=== PATIENT | female | born 1980 | race Caucasian/White ===

== ENCOUNTER 2016-05-24 17:29 | Inpatient (IN) ==
[2016-05-24] MEDS ORDERED: NS 1,000 ML IV ONE ×3 (17:51→20:15)
[2016-05-24] MEDS ORDERED: OFIRMEV 1000 MG/ISOTONIC SOLN 1,000 MG/100 ML BOTTLE IV ONE (17:52)
[2016-05-24] MEDS ORDERED: OFIRMEV 1000 MG/ISOTONIC SOLN 1,000 MG/100 ML BOTTLE IV SCH (17:52)
[2016-05-24] MEDS ORDERED: NS 1,000 ML ONE (18:01)
[2016-05-24] MEDS ORDERED: ATIVAN IV ONE (18:34)
[2016-05-24 18:48] LABS: MANUAL DIFF NEEDED? NO
[2016-05-24 18:49] LABS: BASO% 0.3 % (0.0-0.8); EOS# 0.14 X1000 (0.0-0.7); EOS% 0.6 % (0.0-10.0); HEMATOCRIT 33.6 % (37.0-47.0); HEMOGLOBIN 10.9 g/dL (12.0-16.0); IMM GRAN# 0.08 X1000 (0.0-0.04); IMM GRAN% 0.3 % (0.0-0.5); LYMPH# 4.58 X1000 (1.2-3.4); LYMPH% 19.5 % (20.5-51.1); MCH 27.8 PG (27-31); MCHC 32.4 g/dL (33-37); MCV 85.7 FL (81-99); MONO# 1.97 X1000 (0.11-0.59); MONO% 8.4 % (1.7-9.3); MPV 10.4 FL (7.4-10.4); NEUT% 70.9 % (42.2-75.2); PLT 438 X1000 (130-400); RBC 3.92 XMIL (4.2-5.4)
[2016-05-24 19:11] LABS: AGAP 14; ALBUMIN 3.6 g/dL (3.5-5.0); ALKALINE PHOSPHATASE 125 U/L (32-104); BUN 7 mg/dL (8-22); CALCIUM 8.4 mg/dL (8.8-10.2); CHLORIDE 97 mmol/L (98-107); COSMO 269; GOT 18 U/L (10-30); GPT 16 U/L (10-36); LIPASE 11 U/L (13-60); POTASSIUM 3.5 mmol/L (3.5-5.1); SODIUM 136 mmol/L (136-145); TCO2 25 mmol/L (25-35); TOTAL BILIRUBIN 0.32 mg/dL (0.20-1.00)
[2016-05-24 19:37] LABS: CK INDEX 1.3 (0.0-2.5); CK-MB 6.42 ng/mL (0.0-5.0)
[2016-05-24 19:49] LABS: INR 1.02; PROTIME 10.7 Seconds (9.2-11.7); PTT 31.4 Seconds (22.0-36.0)
[2016-05-24] MEDS ORDERED: VANCOMYCIN 1 GM/NS 1 GM/250 ML IVPB IV ONE (20:02)
[2016-05-24] MEDS ORDERED: ZOSYN 3.375 GM/NS 3.375 GM/50 ML IVPB IV ONE (20:02)
[2016-05-24 20:20] LABS: ALLEN TEST YES; BE 0.9 mmoll (-3.0-3.0); BLOOD TYPE ARTERIAL; DRAW SITE R RADIAL; PCO2(98.6) 33 mmHg (35-45); PO2(98.6) 87 mmHg (60-100); SAMPLE BLOOD; pH(98.6) 7.47 (7.35-7.45)
[2016-05-24 20:21] LABS: MODALITY ROOM AIR
[2016-05-24 20:23] LABS: URINE CULTURE NEEDED? NO; URINE MICRO REVIEW NEEDED? NO; URINE SOURCE CLEAN CATCH
--- NOTE | 2016-05-24 20:35 | PROVIDER DOCUMENTATION ---
HPI-Fever - General Chief Complaint: Altered Mental Status Stated Complaint: general Time Seen by Provider: 05/24/16 17:47 Source: patient Unable to obtain history due to:: altered Allergies/Adverse Reactions: Patient Allergies Allergy/AdvReac Type Severity Reaction Status Date / Time No Known Allergies Allergy Verified 05/24/16 18:11 Home Medications: Home Medication List Medication Instructions Recorded Confirmed Last Taken Type No Home Medications 03/22/16 05/24/16 Unknown History - History of Present Illness-Fever Nature of Presenting Problem: Pt presents to the ED today screaming with left upper flank pain. The pt appears to be under the influence of something and I see in her past records that she does have a hx of drug problems and psychiatric issues. The pt really isn't making any sense and is rolling around the bed screaming. An adequate hx cannot be obtained. Fever Severity/Quality: reports: low grade Onset/Duration: reports: unsure Timing: reports: still present Severity: reports: severe Cognitive Baseline: alert but disoriented - Glascow Coma Score Best Eye Response ([place]): (4) open spontaneously Best Verbal Response ([place]): (4) confused conversation Best Motor Response ([place]): (6) obeys commands Doretha Total: 14 Review of Systems - Adult - REVIEW OF SYSTEMS - ADULT ROS:: limited per condition Constitutional: reports: no symptoms reported Eyes: reports: no symptoms reported Ears, Nose, Mouth & Throat: reports: no symptoms reported Cardiovascular: reports: no symptoms reported Respiratory: reports: no symptoms reported Gastrointestinal: reports: no symptoms reported Genitourinary: reports: flank pain Musculoskeletal: reports: no symptoms reported Integumentary: reports: no symptoms reported Neurological: reports: no symptoms reported Psychiatric: reports: no symptoms reported Endocrine: reports: no symptoms reported Hematologic/Lymphatic: reports: no symptoms reported Allergic/Immunologic: reports: no symptoms reported All Other Systems: Reviewed and Negative Past History - Adult - PAST MEDICAL HISTORY-ADULT Review of Records: reports: Old Records Reviewed, Nursing Assessment Review, Medications Reviewed, Social history reviewed & non-contributory. Major Childhood Illnesses: reports: history unknown Cardiovascular: reports: HTN Respiratory: reports: denies history Gastrointestinal: reports: denies history Obstetrical/Gynecological: reports: endometriosis Genitourinary: reports: denies history Musculoskeletal: reports: denies history Neurological: reports: denies history Psychiatric: reports: anxiety, suicide attempt, other (opiate dependence) Endocrine/Immune: reports: denies history Other Conditions: reports: denies history - PRIOR SURGERIES/PROCEDURES Surgical/Procedure History: reports: tonsillectomy, other (Exploratory lap, second toe left foot amputation) - PRIOR HOSPITALIZATIONS Prior Hospitalizations: reports: none - IMMUNIZATION STATUS Childhood Immunizations: See Nurse Assessment Flu Vaccine: See Nurse Assessment - FAMILY HISTORY Family History: reviewed, not pertinent - SOCIAL HISTORY Substance Use: marijuana, opiates Physical Exam-General - PHYSICAL EXAM-ADULT Exam Limited by: Pt is altered; she is writhing in the bed and will not answer questions - CONSTITUTIONAL General Appearance: moderate distress, obese, anxious - EYES Eyes: PERRL/EOMI - HEAD, EARS, NOSE, MOUTH & THROAT HENMT: normocephalic/atraumatic - NECK Neck: non-tender, full range of motion - RESPIRATORY Respiratory: normal breath sounds, no respiratory distress, no accessory muscle use - CARDIOVASCULAR Cardiovascular: normal peripheral pulses, tachycardia - GASTROINTESTINAL (ABDOMEN) Abdominal Exam: normal bowel sounds, soft, tenderness (L upper flank) - MUSCULOSKELETAL Back Exam: CVA tenderness (left flank) Extremity: normal range of motion - SKIN Integumentary: normal color, normal turgor, warm/dry - NEUROLOGIC Neurologic: grossly normal. negative: facial droop, focal weakness, motor weakness, sensory deficit - PSYCHIATRIC Psych/Mental Status: disoriented x 3, anxious, disheveled, tearful Progress - PLAN OF CARE/RESULTS Progress/Plan/Lab Results: Vital Signs - 8 hr 05/24/16 17:37 Temperature 100.2 F H Pulse Rate 123 H Respiratory Rate 20 Blood Pressure 178/105 O2 Sat by Pulse Oximetry 98 Laboratory Results - last 24 hr 05/24/16 05/24/16 05/24/16 18:25 18:25 18:25 WBC 23.54 H RBC 3.92 L Hgb 10.9 L Hct 33.6 L MCV 85.7 MCH 27.8 MCHC 32.4 L RDW Std Deviation 14.3 Plt Count 438 H MPV 10.4 Immature Gran % (Auto) 0.3 Neut % (Auto) 70.9 Lymph % (Auto) 19.5 L [place] % (Auto) 8.4 Eos % (Auto) 0.6 Baso % (Auto) 0.3 Immature Gran # (Auto) 0.08 H Neut # (Auto) 16.71 H Lymph # (Auto) 4.58 H [place] # (Auto) 1.97 H Eos # (Auto) 0.14 Baso # (Auto) 0.06 PT INR PTT (Actin FS) Specimen Type Sample Site pH pCO2 pO2 HCO3 Base Excess [place] Test A-a O2 Difference Lactate Blood Gas Modality FiO2 % Sodium 136 Potassium 3.5 Chloride 97 L Carbon Dioxide 25 Anion Gap 14 BUN 7 L Creatinine 0.8 Estimated GFR/1.73 m2 > 60 BUN/Creatinine Ratio 9 Glucose 87 Calculated Osmolality 269 Calcium 8.4 L Magnesium Total Bilirubin 0.32 AST 18 ALT 16 Alkaline Phosphatase 125 H Creatine Kinase 477 H Creatine Kinase Index 1.3 CK-MB (CK-2) 6.42 H Troponin T [id number] Pept Total Protein 7.0 Albumin 3.6 Globulin 3.4 Albumin/Globulin Ratio 1.1 Lipase 11 L Plasma Lactate Urine Source Urine Color Urine Turbidity Urine pH Ur Specific Elaine Urine Protein Ur Glucose (Stick) Ur Ketones (Stick) Urine Blood Urine Nitrite Urine Bilirubin Urobilinogen Dipstick Urine Leukocytes Urine WBC (Auto) Urine RBC (Auto) U Epithel Cells (Auto) Urine Bacteria (Auto) Urine Test Urine Opiates Screen Ur Oxycodone Screen Ur Methadone, Qual Ur Barbiturates Screen Ur Phencyclidine Scrn Ur Amphetamines Screen U Benzodiazepines Scrn Urine Cocaine Screen U Cannabinoids Screen 05/24/16 05/24/16 05/24/16 18:25 18:25 18:25 WBC RBC Hgb Hct MCV MCH MCHC RDW Std Deviation Plt Count MPV Immature Gran % (Auto) Neut % (Auto) Lymph % (Auto) [place] % (Auto) Eos % (Auto) Baso % (Auto) Immature Gran # (Auto) Neut # (Auto) Lymph # (Auto) [place] # (Auto) Eos # (Auto) Baso # (Auto) PT INR PTT (Actin FS) Specimen Type Sample Site pH pCO2 pO2 HCO3 Base Excess [place] Test A-a O2 Difference Lactate Blood Gas Modality FiO2 % Sodium Potassium Chloride Carbon Dioxide Anion Gap BUN Creatinine Estimated GFR/1.73 m2 BUN/Creatinine Ratio Glucose Calculated Osmolality Calcium Magnesium 1.9 Total Bilirubin AST ALT Alkaline Phosphatase Creatine Kinase Creatine Kinase Index CK-MB (CK-2) Troponin T < 0.010 [id number]-Nolppflrjir Pept 825 H Total Protein Albumin Globulin Albumin/Globulin Ratio Lipase Plasma Lactate Urine Source Urine Color Urine Turbidity Urine pH Ur Specific Elaine Urine Protein Ur Glucose (Stick) Ur Ketones (Stick) Urine Blood Urine Nitrite Urine Bilirubin Urobilinogen Dipstick Urine Leukocytes Urine WBC (Auto) Urine RBC (Auto) U Epithel Cells (Auto) Urine Bacteria (Auto) Urine Test Urine Opiates Screen Ur Oxycodone Screen Ur Methadone, Qual Ur Barbiturates Screen Ur Phencyclidine Scrn Ur Amphetamines Screen U Benzodiazepines Scrn Urine Cocaine Screen U Cannabinoids Screen 05/24/16 05/24/16 05/24/16 18:25 19:40 20:10 WBC RBC Hgb Hct MCV MCH MCHC RDW Std Deviation Plt Count MPV Immature Gran % (Auto) Neut % (Auto) Lymph % (Auto) [place] % (Auto) Eos % (Auto) Baso % (Auto) Immature Gran # (Auto) Neut # (Auto) Lymph # (Auto) [place] # (Auto) Eos # (Auto) Baso # (Auto) PT 10.7 INR 1.02 PTT (Actin FS) 31.4 Specimen Type ARTERIAL Sample Site R RADIAL pH 7.47 H pCO2 33 L pO2 87 HCO3 25.6 Base Excess 0.9 [place] Test YES A-a O2 Difference 21.0 Lactate 0.70 Blood Gas Modality ROOM AIR FiO2 % 21.0 Sodium Potassium Chloride Carbon Dioxide Anion Gap BUN Creatinine Estimated GFR/1.73 m2 BUN/Creatinine Ratio Glucose Calculated Osmolality Calcium Magnesium Total Bilirubin AST ALT Alkaline Phosphatase Creatine Kinase Creatine Kinase Index CK-MB (CK-2) Troponin T [id number]-Ntj[place]ytuk Pept Total Protein Albumin Globulin Albumin/Globulin Ratio Lipase Plasma Lactate 0.6 Urine Source Urine Color Urine Turbidity Urine pH Ur Specific Elaine Urine Protein Ur Glucose (Stick) Ur Ketones (Stick) Urine Blood Urine Nitrite Urine Bilirubin Urobilinogen Dipstick Urine Leukocytes Urine WBC (Auto) Urine RBC (Auto) U Epithel Cells (Auto) Urine Bacteria (Auto) Urine Test Urine Opiates Screen Ur Oxycodone Screen Ur Methadone, Qual Ur Barbiturates Screen Ur Phencyclidine Scrn Ur Amphetamines Screen U Benzodiazepines Scrn Urine Cocaine Screen U Cannabinoids Screen 05/24/16 05/24/16 05/24/16 20:19 20:19 20:19 WBC RBC Hgb Hct MCV MCH MCHC RDW Std Deviation Plt Count MPV Immature Gran % (Auto) Neut % (Auto) Lymph % (Auto) [place] % (Auto) Eos % (Auto) Baso % (Auto) Immature Gran # (Auto) Neut # (Auto) Lymph # (Auto) [place] # (Auto) Eos # (Auto) Baso # (Auto) PT INR PTT (Actin FS) Specimen Type Sample Site pH pCO2 pO2 HCO3 Base Excess [place] Test A-a O2 Difference Lactate Blood Gas Modality FiO2 % Sodium Potassium Chloride Carbon Dioxide Anion Gap BUN Creatinine Estimated GFR/1.73 m2 BUN/Creatinine Ratio Glucose Calculated Osmolality Calcium Magnesium Total Bilirubin AST ALT Alkaline Phosphatase Creatine Kinase Creatine Kinase Index CK-MB (CK-2) Troponin T [id number]-Mrvpnvjcspp Pept Total Protein Albumin Globulin Albumin/Globulin Ratio Lipase Plasma Lactate Urine Source CLEAN CATCH Urine Color YELLOW Urine Turbidity CLEAR Urine pH 6.0 Ur Specific Elaine 1.011 Urine Protein 70 A Ur Glucose (Stick) NEGATIVE Ur Ketones (Stick) NEGATIVE Urine Blood SMALL A Urine Nitrite NEGATIVE Urine Bilirubin NEGATIVE Urobilinogen Dipstick NORMAL Urine Leukocytes NEGATIVE Urine WBC (Auto) <10 Urine RBC (Auto) <10 U Epithel Cells (Auto) <10 Urine Bacteria (Auto) NEGATIVE Urine Test NEGATIVE Urine Opiates Screen PRESUMPTIVE POSITIVE A Ur Oxycodone Screen NONE DETECTED Ur Methadone, Qual NONE DETECTED Ur Barbiturates Screen NONE DETECTED Ur Phencyclidine Scrn NONE DETECTED Ur Amphetamines Screen PRESUMPTIVE POSITIVE A U Benzodiazepines Scrn PRESUMPTIVE POSITIVE A Urine Cocaine Screen NONE DETECTED U Cannabinoids Screen NONE DETECTED Orders Category Date Time Status Saline Loc NOW Care 05/24/16 17:51 Active HEAD W/O CONTRAST [CT] Stat Exams 05/24/16 19:15 Ordered THORAX/ABDOMEN/PELVIS [CT] Stat Exams 05/24/16 19:18 Ordered ABG [RESP] Routine Lab 05/24/16 20:10 Completed ALCOHOL BLOOD Stat Lab 05/24/16 21:13 Ordered AMMONIA [CHEM] Stat Lab 05/24/16 20:03 Ordered BLOOD CULTURE [BLDCUL] Stat Lab 05/24/16 19:40 Results CBC WITH ELECTRONIC DIFF [HEME] Stat Lab 05/24/16 18:25 Completed CK PROFILE [SP CHEM] Stat Lab 05/24/16 18:25 Completed COMPREHENSIVE METABOLIC PANEL [CHEM] Stat Lab 05/24/16 18:25 Completed LACTATE, PLASMA [CHEM] Stat Lab 05/24/16 19:40 Completed LIPASE [CHEM] Stat Lab 05/24/16 18:25 Completed MAGNESIUM [CHEM] Stat Lab 05/24/16 18:25 Completed TEST-URINE [PREG] Stat Lab 05/24/16 20:19 Completed PRO B-NATRIURETIC PEPTIDE Stat Lab 05/24/16 18:25 Completed PROTIME WITH INR [COAG] Stat Lab 05/24/16 18:25 Completed PTT [COAG] Stat Lab 05/24/16 18:25 Completed TROPONIN T Stat Lab 05/24/16 18:25 Completed UA NIMS W/REFLEX CULT [URINALYSIS] Stat Lab 05/24/16 20:19 Completed URINE DRUG SCREEN Stat Lab 05/24/16 20:19 Completed 0.9% Sodium Chloride Inj [Ns] 1,000 ml Med 05/24/16 18:01 Discontinued .ROUTE As Directed 0.9% Sodium Chloride Inj [Ns] 1,000 ml Med 05/24/16 17:51 Discontinued IV 999 mls/hr 0.9% Sodium Chloride Inj [Ns] 1,000 ml Med 05/24/16 20:15 Discontinued IV 999 mls/hr Acetaminophen [Ofirmev 1000 mg/Isotonic Soln] Med 05/24/16 17:52 Discontinued 1,000 mg in 100 ml IV NOW Acetaminophen [Ofirmev 1000 mg/Isotonic Soln] Med 05/24/16 17:52 Discontinued 1,000 mg in 100 ml IV Q6H Lorazepam [Ativan] Med 05/24/16 18:34 Discontinued 1 mg IV NOW ONE Piperacil/Tazobact 3.375 gm/Ns [Zosyn 3.375 gm/Ns] Med 05/24/16 20:02 Discontinued 3.375 gm in 50 ml IV NOW Vancomycin 1 gm/Ns Med 05/24/16 20:02 Discontinued 1 gm in 250 ml IV NOW Water, Sterile Inj [Sterile Water Inj] Med 05/24/16 21:10 Discontinued 10 ml .ROUTE .STK-MED ONE Ziprasidone [Geodon] Med 05/24/16 21:09 Discontinued 20 mg .ROUTE .STK-MED ONE EKG [EKG] Stat Ther 05/24/16 19:15 Ordered Pt would not be still for CT. She is still writhing and screaming in the bed. I believe that spice may be involved. Her stopped by the ER briefly but after being questioned about her potential drug use he left the ED. Will admit to hospitalist service for potential OD and AMS. Result Diagrams: 05/24/16 18:25 05/24/16 18:25 - REASSESSMENT Reassessment #1 Time Reassessed: 20:36 Status: unchanged Reassessment Comment: Pt is still very altered. - CONSULTS/PCP/HOSPITALIST Notification #1 *Consult/PCP/Hospitalist*: Dr. Rios Time Discussed: 21:15 Consult Disposition: Admit Departure - Departure Time of Disposition Decision: 21:15 DIAGNOSIS: Drug abuse Amphetamine adverse reaction Qualifiers: Encounter type: initial encounter Qualified Code(s): T43.625A - Adverse effect of amphetamines, initial encounter Altered mental status, unspecified Qualifiers: Altered mental status type: unspecified Qualified Code(s): R41.82 - Altered mental status, unspecified Leukocytosis Qualifiers: Leukocytosis type: unspecified Qualified Code(s): D72.829 - Elevated white blood cell count, unspecified Disposition: ADMITTED INPATIENT 09 Certified Medical Emergency: Emergent Condition: Stable Referrals and Follow-Ups: None,PCP [Primary Care Provider] - Attestation - Physician/ JACK Attestation Patient care was provided by Advanced Practice Provider:: Yes Advanced Practice Provider:: Damien Licona Advanced Practice Provider documentation review:: The Mid-level provider documentation, treatment plan and medical decision making was reviewed by the physician who agrees with all treatment and medical decision making by the MLP.
[2016-05-24 20:39] LABS: BILIRUBIN URINE NEGATIVE (NEGATIVE); BLOOD URINE SMALL (NEGATIVE); COLOR YELLOW; GLUCOSE URINE NEGATIVE (NEGATIVE); LEUKOCYTES URINE NEGATIVE (NEGATIVE); NITRITE URINE NEGATIVE (NEGATIVE); PROTEIN URINE 70 mg/dL (NEGATIVE); SP GRAVITY URINE 1.011; TURBIDITY URINE CLEAR (CLEAR); UROBILINOGEN URINE NORMAL (NORMAL)
[2016-05-24 20:40] LABS: UR EPITHELIAL CELLS <10 /HPF (<10); URINE BACTERIA NEGATIVE /HPF; URINE RBC <10 /HPF (<10); URINE WBC <10 /HPF (<10)
[2016-05-24 20:51] LABS: UR AMPHETAMINES QUAL PRESUMPTIVE POSITIVE (NONE DETECT); UR BARBITUATES QUAL NONE DETECTED (NONE DETECT); UR BENZODIAZEPIN QUAL PRESUMPTIVE POSITIVE (NONE DETECT); UR CANNABINOIDS QUAL NONE DETECTED (NONE DETECT); UR COCAINE QUAL NONE DETECTED (NONE DETECT); UR METHADONE QUAL NONE DETECTED (NONE DETECT); UR OPIATES QUAL PRESUMPTIVE POSITIVE (NONE DETECT); UR OXYCODONE QUAL NONE DETECTED (NONE DETECT); UR PCP QUAL NONE DETECTED (NONE DETECT)
[2016-05-24] MEDS ORDERED: GEODON ONE (21:09)
[2016-05-24] MEDS ORDERED: STERILE WATER INJ. ONE (21:10)
[2016-05-24] MEDS ORDERED: GEODON IM ONE (21:32)
[2016-05-24] MEDS ORDERED: STERILE WATER INJ. INJ ONE (21:32)
[2016-05-25] MEDS ORDERED: STERILE WATER INJ. INJ PRN ×2 (01:58→10:28)
[2016-05-25] MEDS ORDERED: TYLENOL PR PRN (01:58)
[2016-05-25] MEDS ORDERED: VANCOMYCIN IV PER PHARMACY MISC SCH (01:58)
[2016-05-25] MEDS ORDERED: GEODON IM PRN ×2 (01:58→10:28)
[2016-05-25] MEDS ORDERED: ZOFRAN IV PRN (01:58)
[2016-05-25] MEDS ORDERED: LOVENOX SUBQ SCH (01:58)
[2016-05-25] MEDS ORDERED: VANCOMYCIN 500 MG/NS 500 MG/100 ML IVPB IV ONE ×2 (02:00→03:00)
[2016-05-25] MEDS: NS 1,000 ML IV SCH ×2 (02:28→13:53)
[2016-05-25 02:36] LABS: URINE CULTURE NEEDED? NO; URINE SOURCE CATH
[2016-05-25 02:43] LABS: BILIRUBIN URINE NEGATIVE (NEGATIVE); BLOOD URINE LARGE (NEGATIVE); CLARITY CLEAR (CLEAR); COLOR YELLOW; GLUCOSE URINE NEGATIVE (NEGATIVE); LEUKOCYTES URINE NEGATIVE (NEGATIVE); NITRITE URINE NEGATIVE (NEGATIVE); PROTEIN URINE 30 mg/dL (NEGATIVE); UROBILINOGEN URINE 0.2 EU/dL (0.2-1.0)
[2016-05-25 02:47] LABS: URINE EPITHELIAL CELLS <10 /HPF (<10); URINE RBC 20-40 /HPF (<10)
[2016-05-25] MEDS ORDERED: ROCEPHIN 1 GM/NS 1 GM/50 ML IVPB IV SCH (04:00)
[2016-05-25 04:18] LABS: ALLEN TEST YES; BE -0.4 mmoll (-3.0-3.0); BLOOD TYPE ARTERIAL; DRAW SITE R RADIAL; O2(CT) 16.8 mL/dL (15.0-23.0); PCO2(98.6) 38 mmHg (35-45); PO2(98.6) 75 mmHg (60-100); SAMPLE BLOOD; SAO2 98.8 % (95.0-100.0); THB 12.6 g/dL (11.5-17.4); pH(98.6) 7.41 (7.35-7.45)
[2016-05-25 04:19] LABS: MODALITY VENTIMASK
[2016-05-25 04:24] LABS: MANUAL DIFF NEEDED? NO
[2016-05-25 04:28] LABS: BASO% 0.2 % (0.0-0.8); EOS# 0.18 X1000 (0.0-0.7); EOS% 0.9 % (0.0-10.0); HEMATOCRIT 34.2 % (37.0-47.0); IMM GRAN# 0.09 X1000 (0.0-0.04); IMM GRAN% 0.5 % (0.0-0.5); LYMPH# 2.76 X1000 (1.2-3.4); MCH 28.5 PG (27-31); MCHC 32.2 g/dL (33-37); MCV 88.6 FL (81-99); MONO# 1.52 X1000 (0.11-0.59); MONO% 7.7 % (1.7-9.3); MPV 10.3 FL (7.4-10.4); NEUT% 76.7 % (42.2-75.2); PLT 401 X1000 (130-400); RBC 3.86 XMIL (4.2-5.4)
[2016-05-25 04:55] LABS: AGAP 14; BUN 5 mg/dL (8-22); CALCIUM 7.6 mg/dL (8.8-10.2); CHLORIDE 105 mmol/L (98-107); COSMO 277; POTASSIUM 3.6 mmol/L (3.5-5.1); SODIUM 140 mmol/L (136-145); TCO2 21 mmol/L (25-35)
[2016-05-25 05:11] LABS: CK PROFILE 238 U/L (24-173)
[2016-05-25 06:13] LABS: CK INDEX 1.6 (0.0-2.5); CK-MB 3.89 ng/mL (0.0-5.0)
[2016-05-25] MEDS: MAXIPIME 2 GM/NS 2 GM/100 ML IVPB IV SCH ×2 (07:33→21:42)
--- NOTE | 2016-05-25 07:45 | Diag Imaging Result Document ---
PROCEDURE NAME: HEAD W/O CONTRAST - 05/24/2016 CT BRAIN WITHOUT CONTRAST: FINDINGS: No parenchymal hemorrhage. No epidural or subdural hematoma. No subarachnoid hemorrhage. No skull fracture. No mass identified on this noncontrasted exam. No hydrocephalus. No sinus opacification. IMPRESSION: No hemorrhage. Negative brain CT without contrast. A preliminary report was given at 10:28 p.m.
--- NOTE | 2016-05-25 08:14 | HISTORY AND PHYSICAL ---
CHIEF COMPLAINT: Altered mental status. HISTORY OF PRESENT ILLNESS: This is a 36-year-old female who presents to the ED screaming of left upper flank pain. Patient appeared to be under the influence of some sort of drug and reportedly had a history of drug problems and psychiatric issues. She was aggressive in the emergency room and a history could not be obtained. She subsequently had to be sedated. She has a history of anxiety, suicide attempt, and opiate dependence, as well as hypertension. There was originally apparently a boyfriend at the bedside but he left immediately when asked about her drug use. Toxicology screen was obtained which showed positive for opiates, amphetamines, benzodiazepines. It is believed that she could have a history of IV drug use. She has an elevated white blood cell count of 23.54 which is chronically elevated. She does not appear to have been worked up at any point for endocarditis. She will be admitted to the ICU for overdose of an unknown substance and further evaluation and treatment. PAST MEDICAL HISTORY: Anxiety, depression, suicide attempt, panic attacks, drug use and abuse, hypertension, tobacco abuse. PAST SURGICAL HISTORY: Tonsillectomy, exploratory laparotomy, second toe left foot amputation. SOCIAL HISTORY: Lives at home. Unemployed, on disability. Reportedly smokes around a pack of cigarettes per day, has since age 11. Smoking cessation was not gone over with the patient as she is obtunded secondary to sedation. She apparently does have a history of substance abuse and is currently positive for illicit substances on her toxicology screen. FAMILY HISTORY: Family history could not be reviewed with the patient. No family history was charted in previous dictations that I could find. ALLERGIES: No known drug allergies per previous documentation. HOME MEDICATIONS: Unobtainable related to patient's medical problems. REVIEW OF SYSTEMS: Review of systems unobtainable related to altered mentation and subsequent sedation for aggressive behavior in the emergency room. PHYSICAL EXAMINATION: VITAL SIGNS: Temperature 100.5 degrees on arrival, pulse 103, respirations 22, blood pressure 132/86, oxygen saturation 95% on room air. GENERAL: Obtunded 36-year-old female who does not reflex to painful stimulus. Snoring loudly. HEENT: Head is atraumatic, normocephalic. Pupils equal, round, reactive to light. Extraocular eye movement could not be tested. Oral mucosa is moist. NECK: Supple. No JVD. CARDIOVASCULAR: S1, S2 appreciated. Sinus tachycardia on monitor. Regular rhythm. No murmurs, gallops, rubs. LUNGS: Clear to auscultation bilaterally. No rhonchi, wheezes, or rales. ABDOMEN: Soft, nondistended, nontender. Bowel sounds present in all 4 quadrants, normoactive. No pulsatile mass. No organomegaly. EXTREMITIES: No clubbing, cyanosis, or edema. NEUROLOGICAL: Patient is obtunded, disoriented x3. On arrival was agitated and subsequently sedated. Does not reflex at this time to painful stimulus. Is sleeping soundly. SKIN: Warm, dry, intact. No acute lesions or rash. DIAGNOSTIC DATA: CT of the head was ordered. There was a note in the ER documentation that the patient would not be still for CT scanning and will try again later when appropriate. LABORATORY DATA: WBC 23.54, hemoglobin 10.9, hematocrit 33.6, platelet count 438,000. Coags within normal limits. ABG, pH 7.47, pCO2 33, PO2 87, bicarb 25.6; this was on room air. Sodium 136, potassium 3.5, chloride 97, carbon dioxide 25, BUN 7, creatinine 0.8, glucose 87, alkaline phosphatase 125. CK 477, CK-MB 6.42. Troponin less than 0.010. Urine unremarkable. Toxicology screen positive for opiates, amphetamines, and benzodiazepines. ASSESSMENT AND PLAN: 1. Drug abuse with possible overdose of unknown substance. Patient's toxicology screen was positive for opiates, amphetamines, and benzodiazepines. 2. Leukocytosis of unknown etiology. 3. Possible endocarditis. Patient has apparently used IV drugs. She does not have a noted murmur. However, she was febrile on presentation. Will order echocardiogram in the a.m. Consult Dr. Marino Mayen. Give vancomycin and Rocephin. Blood cultures x2. Recheck laboratory data in the a.m. 4. Previous drug abuse history. 5. Noted hypertension. However, the patient's medications are not available. She is normotensive at this time. However, she is sedated. Will re-evaluate and treat as needed. 6. Apparent rhabdomyolysis. We will give IV fluids. Recheck CK profile and troponin in the a.m. The patient had no complaint of chest pain prior to having to be sedated. Further recommendations per patient clinical course. Dictated by ANDERSON Breaux for Angel Rios MD cc: ANDERSON Breaux MD
--- NOTE | 2016-05-25 09:28 | Diag Imaging Result Document ---
PROCEDURE NAME: THORAX/ABDOMEN/PELVIS - 05/24/2016 CT THORAX WITH CONTRAST: Exam performed with intravenous contrast. A dose-reduction protocol was used. COMPARISON: No comparison exam. FINDINGS: There is mild cardiomegaly. There are hazy bilateral pulmonary opacities. There is mild dependent atelectasis. There is no dense consolidation, pleural effusion, or pneumothorax identified. There are some artifacts from motion. The visualized bony structures appear grossly intact. There are nonspecific small mediastinal lymph nodes. IMPRESSION: Mild cardiomegaly. Nonspecific hazy bilateral pulmonary opacities. The possibility of mild pulmonary edema or pneumonitis cannot be excluded. There is no discrete focal pneumonia identified. CT ABDOMEN AND PELVIS WITH IV CONTRAST ONLY: Exam performed with intravenous contrast only per request of the referring provider. A dose-reduction protocol was used. COMPARISON: 02/24/2012. FINDINGS: There is possibly mild fatty infiltration of the liver. There is no focal liver lesion identified. There are no substantial abnormalities of the spleen, adrenal glands, or pancreas identified. There are no calcified gallstones or pericholecystic inflammation identified. There is mild hydronephrosis on the right. There is no obstructing renal stone identified. There is slight fullness of the left upper collecting system. There is some cortical thinning/scarring on the left which is stable. There is no renal mass identified. The urinary bladder is substantially distended. The urinary bladder dyson are not obviously thickened. There are nonspecific small retroperitoneal lymph nodes. There are no substantially enlarged lymph nodes identified. There is no evidence of bowel obstruction. The appendix shows no obvious inflammation. There is no substantial bowel wall thickening identified. There is no abscess identified. There is no free air or substantial free fluid seen. Images of the pelvis, otherwise, show no abnormal mass or fluid collection. IMPRESSION: 1. Mild right hydronephrosis. No obstructing renal stone identified. Substantially distended urinary bladder. 2. No bowel obstruction. Unremarkable appendix. No abscess. No free air. 3. Possible mild fatty infiltration of the liver. Nonspecific small retroperitoneal lymph nodes. The on-call radiologist provided preliminary results at 10:36 p.m. on 05/24/2016.
--- NOTE | 2016-05-25 09:53 | CONSULTATION ---
DATE OF CONSULTATION: 05/25/2016 HISTORY: The patient was unable to provide a history. No family member is present and there is nothing in the computer that would indicate exactly what the patient's history was at this time. CONCLUSION: The patient has a history of drug addiction. She was admitted to the hospital with an altered mental status. She does have a leukocytosis so I think infection is a diagnostic possibility. Her drug screen was positive for opiates, amphetamines, and benzodiazepines so she appears to be an active addict. RECOMMENDATION: I agree with the decision to treat the patient with vancomycin. I have switched the patient from Rocephin to cefepime. The antibiotics are pending culture results from the blood, and also CT scan and echocardiogram results. The patient's urinalysis showed no white cells or bacteria and thus I think urinary tract infection is very unlikely. I have ordered an antibody to HIV and also a hepatitis profile in view of her history of being a drug addict. DISCUSSION: As mentioned above, I do not have any real history on this patient, just the results of her laboratory tests that are back. The radiographic studies including CT scans of the head, thorax, the abdomen, and pelvis are pending. The patient's CBC shows a white count that was 25,000 and this morning it is down to 19,670. Hemoglobin is 11, platelet count is 401,000. Creatinine is 0.6. GFR is greater than 60. Liver function studies are normal. As mentioned above, the blood cultures are pending. Patient's arterial blood gases showed a pH of 7.41, a PO2 of 75, a pCO2 of 38. Urinalysis showed no white cells or bacteria. Drug screen was positive for opiates, amphetamines, and benzodiazepines. CT scans of the head, chest, abdomen, and pelvis are pending. PHYSICAL EXAMINATION: Vital Signs: Patient's temperature is 99.3 degrees, the pulse is 106, respirations 16, blood pressure is 152/101. Patient's weight is listed as 219 pounds. Generally: This is an obese, young female. She is not intubated. She is not sedated but she is in restraints. Ears, Nose, and Throat: No drainage noted from the nose or ears. Patient did not respond to verbal stimuli. Her mouth was not opened and she did not open it to my request. Neck: No meningismus. Thorax: No increased AP diameter. Lungs: Clear to auscultation. Cardiovascular: Heart rate is regular. I did not hear a murmur. Abdomen: Soft and nontender. Neurologic: Patient now is very lethargic. She barely moved when I talked to her. There was no tremor. She did not talk and she did not follow my requests to move her extremities. Integument: Patient had tattoos. I did not see any needle tracks on her. Neurologic: As mentioned above, the patient is very lethargic now. She did not respond to verbal stimuli. There was no tremor. Thank you for the consult. cc: Marino Mayen MD
--- NOTE | 2016-05-25 11:17 | PROGRESS NOTE ---
DATE: 05/25/2016 SUBJECTIVE: The patient has no focal complaints. OBJECTIVE: Vital signs: Blood pressure 146/86, respiratory rate 18, heart rate 101, temp 98.6 degrees, 94 on 24%. Cardiovascular: Regular rate and rhythm. No displaced PMI. GI: Soft, nontender, nondistended. Bowel sounds are positive. Extremities: No clubbing or cyanosis. Neurologic: She is still very lethargic but she opens her eyes. Moves around a bit. She does answer questions. She does not know what happened to her yesterday, or at least is not willing to describe what happened. She denies drug overdose. She also denies suicidality or intentional drug overdose. Is still somewhat disoriented but is no longer combative. PROBLEM LIST: 1. Acute encephalopathy, presumably polysubstance overdose. Her urine drug screen was positive for methamphetamines, benzodiazepines, and opiates. She is not reportedly on any medications. 2. We will continue to monitor. Clinically she has stabilized. 3. Leukocytosis without clear source of infection. She is on vancomycin and cefepime. We are ruling out endocarditis. Her transthoracic echocardiogram has been completed but has not been reported. We will continue to follow her. Multiple scans are unremarkable. I am going to repeat her chest x-ray today just because she is at risk for aspiration. 4. Drug abuse. We will discuss this when she is a little bit more aware of her findings. DISPOSITION: The patient appears to be stable. I think she is okay to go to a step-down unit at this point and we will follow clinically. Discharge when mental status is improved and we have ruled out infection. cc: Justino Ortiz MD
--- NOTE | 2016-05-25 11:23 | Diag Imaging Result Document ---
PROCEDURE NAME: CHEST-PORTABLE - 05/25/2016 PORTABLE CHEST: Compared with 05/12/2015. FINDINGS: Allowing for the AP projection, there is borderline cardiomegaly. There is mild elevation of right hemidiaphragm. The lungs appear essentially clear. There is no pleural effusion or pneumothorax identified. IMPRESSION: Borderline cardiomegaly. Mild elevation of right hemidiaphragm. No other evidence of acute disease.
[2016-05-25] MEDS: VANCOMYCIN 2,000 MG in NS 500 ML IV SCH (14:51)
[2016-05-25] MEDS ORDERED: VANCOMYCIN 1 GM/NS 1 GM/250 ML IVPB IV SCH (15:00)
--- NOTE | 2016-05-25 18:32 | ECHO REPORT ---
ORDER DATE: 05/25/2016 INTERPRETING PHYSICIAN: Dr. Michel REQUESTING PHYSICIAN: CLINICAL INDICATIONS: A 36-year-old female with hypertension, drug abuse, mental status changes, leukocytosis. M-MODE MEASUREMENTS: Right ventricle: 3.2 cm. Left ventricle end diastole: 4.5 cm. Left ventricle end systole: 2.4 cm. Posterior wall: 1.2 cm. Interventricular septum: 1.2 cm. Left atrium: 3.4 cm. Aortic root: 3.3 cm. SUMMARY OF 2-DIMENSIONAL IMAGING: The left ventricular function is normal. Ejection fraction estimated at 60%. The chamber is not dilated. The right ventricle appears to be mildly enlarged. The aortic valve appears to be grossly normal. Color flow mapping unremarkable. The mitral valve also appears to be grossly normal. Color flow mapping unremarkable. The pulmonic valve is suboptimally visualized. Color flow mapping unremarkable. The tricuspid valve shows a mild degree of regurgitation. The inferior vena cava is not dilated. The tissue Doppler of septal and lateral mitral annulus averages 8.5 cm per second, indicating normal diastolic function. Pulmonary pressure is estimated at 26 mmHg. There is no pericardial effusion, masses or thrombus. The atria appear to be unremarkable. IMPRESSION: In summary, this study shows: 1. Normal left ventricular systolic function. 2. Grossly unremarkable valvular structures. 3. No diastolic dysfunction. 4. No pulmonary hypertension. Clinical correlation recommended. cc: MD Jeremy Boyd CRNP MTDD
[2016-05-26] MEDS: NS 1,000 ML IV SCH (03:42)
[2016-05-26] MEDS: VANCOMYCIN 2,000 MG in NS 500 ML IV SCH (03:56)
[2016-05-26 06:05] LABS: HEMOGLOBIN A1C 6.3 % (4.8-6.0)
[2016-05-26 06:16] LABS: AGAP 10; BUN 5 mg/dL (8-22); CALCIUM 7.8 mg/dL (8.8-10.2); CHLORIDE 107 mmol/L (98-107); COSMO 284; SODIUM 144 mmol/L (136-145); TCO2 27 mmol/L (25-35)
--- NOTE | 2016-05-26 07:19 | PROGRESS NOTE ---
DATE: 05/26/2016 PRESENT ILLNESS: The patient has bilateral pulmonary infiltrates which I think could represent a pneumonia. MEDICATIONS: The patient is receiving a combination of cefepime and vancomycin. This is day 1 of treatment. PHYSICAL EXAMINATION: Vital Signs: Temperature is 98.4 degrees, pulse 73, respirations 20, blood pressure 123/53. Generally: This is an obese, young female who is in no acute distress. Lungs: Clear to auscultation. Thorax: There is no tenderness in the left lower posterior aspect of the lung where the patient has been having pain. LABS AND X-RAY: Creatinine 0.6. GFR is greater than 60. CBC is not present today. Chest x-ray shows cardiomegaly and elevation of the right hemidiaphragm. CT scan of the abdomen and chest showed bilateral pulmonary opacities, a fatty liver, and right hydronephrosis but no stone. The patient may have pneumonia. The right hydronephrosis brings up the possibility of a partial obstruction. We do not have a urine culture pending on this patient. The patient's urinalysis showed blood but negative for nitrites. A chest x-ray shows cardiomegaly and elevation of the right hemidiaphragm. Echocardiogram shows there are no vegetations present. Urinalysis did show some blood but it was negative for nitrites. The urine white blood cells were less than 10. The patient's test is negative. ASSESSMENT AND PLAN: Patient appears to have pneumonia. She does not seem to have a urinary tract infection in view of the fact that there were red cells in the patient's urine but no white cells and no bacteria. My assessment is that we will go on and continue her with her current antibiotics. I will go ahead and order a urine culture and possibly an intravenous study of the urinary tract to see if there is any blockage. The patient's comorbidities, it appears the biggest one has to do with doing drugs. The urine drug test did show amphetamines, benzodiazepines, and opiates. cc: Marino Mayen MD MTDD
[2016-05-26 07:43] VITALS: BP 164/97
--- NOTE | 2016-05-26 08:10 | PROGRESS NOTE ---
DATE: 05/26/2016 ADDENDUM: The patient appears to have a bilateral pneumonia. In addition, she has a mild right hydronephrosis without a renal calculus causing obstruction. The patient's urinalysis showed that there was blood in the urine. There was negative white blood cells and also negative for bacteria. It would not appear that she has a urinary tract infection. cc: Marino Mayen MD MTDD
[2016-05-26 10:05] LABS: HEMATOCRIT 34.8 % (37.0-47.0); HEMOGLOBIN 10.9 g/dL (12.0-16.0); MCH 27.8 PG (27-31); MCHC 31.3 g/dL (33-37); MCV 88.8 FL (81-99); MPV 11.2 FL (7.4-10.4); RBC 3.92 XMIL (4.2-5.4)
[2016-05-26 10:37] LABS: HEPATITIS PROFILE ACUTE SEE COMMENTS
[2016-05-26] MEDS ORDERED: SUBOXONE 8 MG/2 MG SL ONE (10:39)
[2016-05-26] MEDS: MAXIPIME 2 GM/NS 2 GM/100 ML IVPB IV SCH (11:12)
[2016-05-26 11:44] LABS: HIV ANTIBODY SCREEN SEE COMMENTS
[2016-05-26] MEDS ORDERED: LIDODERM TOP ONE (12:10)
[2016-05-26] MEDS ORDERED: TORADOL IV PRN (12:11)
[2016-05-26] MEDS ORDERED: TORADOL IV ONE (12:11)
[2016-05-26] MEDS ORDERED: SUBOXONE 8 MG/2 MG SL SCH (21:00)
--- NOTE | 2016-05-27 12:27 | DISCHARGE SUMMARY ---
ADMISSION DATE: 05/25/2016 DISCHARGE DATE: 05/26/2016 CONSULTATIONS: Dr. Marino Mayen with Infectious Disease. PERTINENT PROCEDURES: 1. Head CT showed no hemorrhage. Negative CT. 2. Chest, abdomen, and pelvis CT showed mild cardiomegaly and nonspecific hazy bilateral pulmonary opacities. The possibility of mild pulmonary edema or pneumonitis could not be excluded. No discrete focal pneumonia identified. Mild fatty infiltration of the liver. Mild right hydronephrosis with no obstructing renal stone identified. Substantially distended urinary bladder. No bowel obstruction. 3. Echocardiogram showed normal LV systolic function, grossly unremarkable valvular structures, no diastolic dysfunction, and no pulmonary hypertension. 4. Chest x-ray revealed borderline cardiomegaly and mild elevation of the right hemidiaphragm. No other evidence of acute disease. DISCHARGE DIAGNOSES: 1. Acute encephalopathy presumably from polysubstance over abuse. Drug screen was positive for methamphetamines and benzodiazepines as well as opiates. Patient educated on cessation of illicit drugs as well as prescription drug abuse. 2. Leukocytosis without clear source of infection. Possible aspiration pneumonia. The patient was being treated with vancomycin as well as cefepime. Endocarditis has been ruled out with a transthoracic echocardiogram. 3. Mild right hydronephrosis without a urinary tract infection. No obstruction. No obstructing stone was seen on imaging. Patient is being discharged on p.o. Augmentin for 7 days. 4. Drug abuse. Again, cessation was discussed. HOSPITAL COURSE: Briefly, Ms. Bishop is a 36-year-old female with a past medical history of anxiety, depression, suicide attempt, panic attacks, drug use and abuse, hypertension, and tobacco abuse. She presented to the ED screaming from flank pain. The patient at that time appeared to be under the influence of some sort of drugs and reportedly had a history of drug problems and psychiatric issues. She was aggressive in the ED. Her history could not fully be obtained then. She was subsequently sedated. She apparently had a boyfriend who was at the bedside but he left immediately when asked about drug abuse. Her tox screen was positive for opiates, amphetamines, and benzodiazepines. It was believed that she could have a history of IV drug use. She had an elevated white count of 23 which is chronically elevated. The patient was admitted to the ICU for overdose as well as further evaluation and treatment and also to rule out endocarditis with apparent IV drug use. A murmur was not noted. However, she was febrile on presentation. She was ruled out with echocardiogram. It was negative. Blood cultures have also remained negative. She was noted to have mild right hydronephrosis on a CT of the abdomen and pelvis. Her head CT was negative. Dr. Marino Mayen with Infectious Disease was also consulted. He felt that clinically the patient did have pneumonia and she was at high risk for aspiration secondary to her drug abuse. Her urine culture is still not showing any growth. There was no UTI and again imaging showed that there was no renal calculus causing any obstruction. Overnight the patient appeared to be stable. She was moved to the stepdown unit from the ICU. Today the patient is stable enough for discharge. All her imagings have resulted. The patient will go home on p.o. Augmentin for another 7 days. VITAL SIGNS AT THE TIME OF HER DISCHARGE: Temperature is 97.9, heart rate 92, respirations 18, and blood pressure 164/97. O2 is 98% on room air. The patient's Graf catheter has been discontinued and she is voiding on her own. DISCHARGE DIET: Regular. DISCHARGE MEDICATIONS: 1. Augmentin 875 mg/125 mg one each p.o. b.i.d.. 2. Suboxone one each sublingual b.i.d.. FOLLOW UP: The patient is being discharged home with self-care. She will need to follow up with a primary care physician from the list that has been provided to her. Again, she has been educated on illicit drug and prescription drug use cessation. The patient can return to the ED for any worsening of symptoms as well as smoking cessation and the means to quit. The patient can return to the ED for any worsening of symptoms. This is ANDERSON Chase doing a discharge summary for Dr. Ortiz. DISCHARGE TIME: 30 minutes. Dictated by ANDERSON Chase for Justino Ortiz MD cc: Justino Ortiz MD [facility]
== END 2016-05-26 16:30 | disposition home or self-care (01) ==
LOC: ED 17:29 → SUATTDRO 05-25 00:55 → ICU 05-25 00:55 → 3S 05-25 18:36
PROVIDERS: ATTEND Internal Medicine